=== PATIENT | male | born 1975 | race Hispanic/Latino ===

== ENCOUNTER 2024-12-07 19:40 | Emergency (ER) | payer MEDICAID ==
[~2024-12-07] VITALS: Ht 165.1 cm; Wt 60.3 kg
[2024-12-07] MEDS ORDERED: 0.9%NACL 1000ML 1,000 ML IV ONE (20:00)
--- NOTE | 2024-12-07 20:11 | NUR ---
PT IS NOT ALLOWING STAFF TO TOUCH HIM, OBTAIN HIS VITALS OR DO AN EVALUTION. PT HAS DELAYED MENTATION HIS BASELINE.
--- NOTE | 2024-12-07 20:22 | ERN ---
General Chief Complaint: Weakness Stated Complaint: WEAKNESS Time Seen by MD: 19:41 History of Present Illness Initial Comments Patient is a 49-year-old male with developmental delay and corpus callosum agenesis staying at the [facility] he has been refusing to eat and drink for two days he has a history of bowel resection and PICA ingesting plastic bags last was March 10, 2023 past medical history includes astigmatism dry eye syndrome impaired vision cataracts dental disease or of pharyngeal dysphagia hyperammonemia hiatal hernia ventral hernia hemorrhoids phimosis SIADH osteopenia hyper cholesterol onychomycosis onychogryphosis normocytic normochromic anemia. The SIADH causes his sodium to be low which induces seizures and weakness. Patient also has a seizure disorder. And sent here to be evaluated in the emergency room because of concern of patient refusing to eat for two days. They would like to know if he swallowed something given his history of PICA. Timing/Duration: 24 hours, 1 week Allergies: Coded Allergies: No Known Allergies (Unverified Allergy, Unknown, 12/07/24) Past Medical History Past Medical History: GERD, High Cholesterol, Unknown Medical History Other: Please see the HPI for more details Past Surgical History: Unknown ROS Dictation Unable to obtain. 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 Physical Exam General Appearance: (+) mild distress Orientation: (+) disoriented ( ) Eyes Comment Bilateral cataracts Ear, Nose, Throat: (+) hearing grossly normal Neck: (+) normal inspection, (+) full range of motion, (+) no JVD Respiratory: (+) chest non-tender Respiratory Comment Only able to get a brief exam given patient's pushing me away but lungs did soun d clear. Gastrointestinal: (+) soft, (+) non-tender Gastrointestinal Comment Again patient constantly pushing me away but I did think I heard some bowel sounds. Extremities: (+) normal range of motion Neurologic/Psychiatric: (+) no motor defecits MDM Given the difficulty in patient's condition I doubt I will be able to get a CT abdomen and pelvis for him. I doubt I will get an EKG for him. I am not even sure I will be able to draw labs. The patient does urinate and is continent so I can get a UA. I will also get a KUB to rule out any foreign objects. When we asked the patient if he could pee he said no already went. I gave him a large glass of water and he immediately drank it. I suspect patient GI tract is intact and not obstructed. We will see if the KUB or the UA show anything. Since KUB shows no free air no signs of obstruction he does have what appeared to be a large collection of metallic clips throughout his small bowel. I do not think it is worth getting a CT scan of this patient's abdomen he does not look sick. He did drink a lot of water when offered to him I have a very low suspicion for a problem with his GI tract. I will discharge him back to his facility. Of note we were unable to draw labs on him. ED Course Orders Procedure Category Date Status Time 0.9%Nacl 1000ml (Ns PHA 12/07/24 Complete 1000ml) 20:00 Cbc With Differential LAB 12/07/24 Logged 19:50 Cardiac Panel LAB 12/07/24 Logged 19:50 Urinalysis Profile LAB 12/07/24 Logged 19:50 Basic Metabolic Panel LAB 12/07/24 Logged 19:50 12 Lead Ekg Tracing- EKG 12/07/24 Logged Technical 19:50 Abd 1vw RAD 12/07/24 Taken 20:00 Current Medications Medications (Trade) Dose Ordered Sig/[place] Route PRN Reason Start Time Stop Time Status Last Admin Dose Admin Sodium Chloride 1,000 ml @ 0 mls/hr ONCE ONCE IV 12/07/24 20:00 12/07/24 20:01 DC Vital Signs Date Time Temp Pulse Resp B/P (MAP) Pulse Ox O2 Delivery O2 Flow Rate FiO2 12/07/24 19:46 100.2 24 97 Room Air DX & DISP Disposition: Discharge Departure Impression: Primary Impression: Pica in adults Condition: Stable Additional Instructions: Please return to the ED if patient has increased symptoms of abdominal pain nausea vomiting diarrhea. Referrals: SELF,REFERRAL (PCP) JUAN LUIS PAGE MD Dec 07, 2024 20:22
--- NOTE | 2024-12-07 20:35 | NUR ---
ATTEMPTS TO OBTAIN BLOOD, EKG, AND VITALS WERE MET WITH SEVERE RESISTANCE AND PHYSICAL ATTACKS. PT DOES NOT UNDERSTAND NEED FOR INTERVENTION.
--- NOTE | 2024-12-07 20:58 | HMCIMG ---
ABD 1VW HISTORY: PICA TECHNIQUE: ABD 1VW. COMPARISON: None. FINDINGS AND IMPRESSION: Prominent loops of bowel with air-fluid levels which may represent enterocolitis versus early obstruction. Correlate clinically. Multiple surgical clips are seen in the abdomen. No acute osseous injury is identified.
[2024-12-07 21:29] VITALS: PULSE 97; RESP 18; TEMP 99.9; O2SAT 98
== END 2024-12-07 21:30 | disposition home or self-care (01) ==
LOC: EDH 19:40
DX: F50.83 Pica in adults (principal); K21.9 Gastro-esophageal reflux disease without esophagitis; E78.00 Pure hypercholesterolemia, unspecified; Z90.49 Acquired absence of other specified parts of digestive tract
CPT/HCPCS: 74018; 99284